=== PATIENT | female | born 1990 | race Caucasian/White ===

== ENCOUNTER 2018-05-27 17:35 | Emergency (ER) | payer SELFPAY ==
[~2018-05-27] VITALS: Ht 172.7 cm; Wt 66.4 kg
[2018-05-27 17:40] VITALS: BP 140/77
[2018-05-27] MEDS ORDERED: KETOROLAC 30 MG/1 ML ONE (18:27)
[2018-05-27] MEDS ORDERED: KETOROLAC 30 MG/1 ML IM ONE (18:30)
== END 2018-05-27 18:45 | disposition home or self-care (01) ==
LOC: ED 18:05
DX: S33.5XXA Sprain of ligaments of lumbar spine, initial encounter (principal); S16.1XXA Strain of muscle, fascia and tendon at neck level, initial encounter; M25.511 Pain in right shoulder; V89.2XXA Person injured in unspecified motor-vehicle accident, traffic, initial encounter; Y93.89 Activity, other specified; Y99.8 Other external cause status; Y92.410 Unspecified street and highway as the place of occurrence of the external cause
CPT/HCPCS: 72050; 72110; 96372; 99283; J1885